=== PATIENT | male | born 1990 | race Caucasian/White ===

== ENCOUNTER 2020-09-24 06:13 | Day surgery (SDC) | payer MEDICAID, SELFPAY ==
[2020-09-18 13:54] VITALS: BMI 32.6
--- NOTE | 2020-09-20 08:02 | MHC.SHP ---
Pre-Procedural Eval Section A Date of Service: 09/20/20 The patient is an INPATIENT: No The History & Physical has been completed within 30 days and I have reviewed it.: Yes Section B Chief Complaint: exotropia Allergies: Allergies Allergy/AdvReac Type Severity Reaction Status Date / Time No Known Allergies Allergy Verified 09/18/20 13:44 Plan Diagnosis/Plan: Unchanged I have reviewed the history and physical and performed a pertinent physical examination on my patient. No changes have occurred unless specified.
--- NOTE | 2020-09-21 10:55 | HO.ANESPROP2 ---
Documented by User: Juanita Esqueda 09/21/20 10:55 HPI - Anesthesia Eval Consult details Narrative: 29yo M for Bilateral Strabismus Medial Rectus Resection FOR[facility], [facility] Past Medical History Medical History Asthma COVID-19 vaccine series completed Surgical History Surgical History [place] teeth extracted Social History Social History Are you a primary health care social worker to a significant other at home: No Do you presently have visiting nurse or other home services: No Patient Tobacco Use Status: Never used Tobacco Use of substances other than those prescribed or required for medical reasons: No Have you been hit, kicked, punched, or otherwise hurt by someone within the past year? If so, by whom?: No Are you DNR?: No Advance Directives: No Advance Directives Information Provided: No Advance Directives on File: No Recently lost weight without trying: No Eating poorly because of decreased appetite: No Nutrition Risks: No Nutritional Risk Poor oral hygiene: No Meds Allergies Allergy/AdvReac Type Severity Reaction Status Date / Time No Known Allergies Allergy Verified 09/24/20 06:20 Home Medications Medication Instructions Recorded Confirmed Last Taken Type albuterol sulfate [ProAir HFA] 2 puff INHALATION Q6H PRN 09/18/20 09/18/20 09/24/20 05:15 History budesonide-formoterol [Symbicort] 2 puff PO BID 09/18/20 09/18/20 09/24/20 05:15 History Exam Exam Date and Time: September 21, 2020 1055 Height,Weight and Vital Signs: Height 5 ft 8 in Weight 97.522 kg Assessment and Plan Assessment Anesthesia Assessment: Chart Reviewed Documented by User: Emre Benítez 09/24/20 07:07 [facility] Past Medical History Medical History Asthma COVID-19 vaccine series completed Surgical History Surgical History [place] teeth extracted Social History Social History Are you a primary health care social worker to a significant other at home: No Do you presently have visiting nurse or other home services: No Patient Tobacco Use Status: Never used Tobacco Use of substances other than those prescribed or required for medical reasons: No Have you been hit, kicked, punched, or otherwise hurt by someone within the past year? If so, by whom?: No Are you DNR?: No Advance Directives: No Advance Directives Information Provided: No Advance Directives on File: No Recently lost weight without trying: No Eating poorly because of decreased appetite: No Nutrition Risks: No Nutritional Risk Poor oral hygiene: No Meds Allergies Allergy/AdvReac Type Severity Reaction Status Date / Time No Known Allergies Allergy Verified 09/24/20 06:20 Home Medications Medication Instructions Recorded Confirmed Last Taken Type albuterol sulfate [ProAir HFA] 2 puff INHALATION Q6H PRN 09/18/20 09/18/20 09/24/20 05:15 History budesonide-formoterol [Symbicort] 2 puff PO BID 09/18/20 09/18/20 09/24/20 05:15 History Exam Airway Mallampati Class: III TM Dist: >3cm Neck ROM: Full Loose/Missing/Broken Teeth: No Heart: [id number] Lungs: cta b/l Assessment and Plan Assessment Anesthesia Assessment: Anesthesia Plan Discussed, PAT Visit and Chart Reviewed Final Anesthetic Review NPO: Yes ASA Class: II Final Preanesthetic Review: No Changes in Pt Med Stat, Meds/Allgs Chart Reviewed, Consent Obtained/Reviewed and Anes Risks/Benef Reviewed Patient Risk: Intermediate Procedure Risk: Low Assessment/Block/Sedation in SS: Assess/Block/Sedation-SS Anesthetic Plan Anesthetic Plan: GA and Agree w/ Assess. and Plan Disposition: Standard PACU
[2020-09-24] VITALS (10 sets, daily range): BP systolic 125–155; BP diastolic 61–93; PULSE 76–116; RESP 13–18; TEMP 36.7–37.2; O2SAT 95–99
[2020-09-24] MEDS: Lactated Ringers 500 ML 50 ML IV (06:49)
--- NOTE | 2020-09-24 09:15 | HO.PNOPHT ---
Ophthalmology Procedure Procedure Date of Service: 09/24/20 Ophthalmology Viscoelastic: Not Applicable Ophthalmology Lenses: Not Applicable
[2020-09-24] MEDS: HYDROmorphone HCl 0.5 MG/0.5 ML SYRINGE IVPUSH ×2 (09:40→09:45)
[2020-09-24] MEDS: oxyCODONE HCl Immed Release 5 MG TABLET 10 MG PO (09:47)
--- NOTE | 2020-09-24 14:59 | OP_ITS ---
SURGEON: Samm Larios MD PREOPERATIVE DIAGNOSIS: Exotropia. POSTOPERATIVE DIAGNOSIS: Exotropia. PROCEDURE PERFORMED: Bilateral medial rectus resection of 5.5 mm. ESTIMATED BLOOD LOSS: COMPLICATIONS: ANESTHESIA: General. ASSISTANTS: SPECIMENS: DESCRIPTION OF PROCEDURE: After obtaining informed consent, the patient was brought to the operating room suite and placed in supine position. Attention was directed to the conjunctiva overlying the medial rectus muscle. An incision was created with Liz scissors. The medial rectus muscle was identified in a sequential muscle hook technique. A double-armed suture was then placed 5.5 mm posterior to the insertion site with a locking suture at each margin of the muscle. The muscle was then resected with Liz scissors. The residual medial rectus muscle was removed from the incision site and the double-armed suture was then utilized to place the muscle to the insertion site. Conjunctiva was then closed with 6-0 Vicryl suture. Attention was directed to the right eye, where the identical procedure was performed. Attention was directed to the conjunctiva overlying the medial rectus muscle, an incision was created with Liz scissors. The medial rectus muscle was then identified utilizing sequential muscle hook technique. A double-armed suture was placed 5.5 mm from the limbus with a locking stitch at each margin of the muscle. The muscle was then medial rectus was resected from the globe and sent to pathology. The muscle then was placed back to the original insertion site with a double-armed suture, which was previously placed. The conjunctiva was then closed with a 6-0 Vicryl suture. The patient tolerated the procedure well. Antibiotic ointment was instilled in each eye and the patient will be seen in followup. MD RAMILA Dutton/LENY / [id number] MTDD
== END 2020-09-24 10:57 | disposition home or self-care (01) ==
PROVIDERS: PCP Internal Medicine; Visit Provider Ophthalmology
PROC: (CPT 67311; principal; 2020-09-24 08:30)
DX: H50.10 Unspecified exotropia (principal); J45.909 Unspecified asthma, uncomplicated; Z79.51 Long term (current) use of inhaled steroids
CPT/HCPCS: 67311 ×2; 88304; J1100; J1170; J2250; J2405; J2765; J3010